=== PATIENT | male | born 1985 | race Caucasian/White ===

== ENCOUNTER 2018-05-29 23:25 | Emergency (ER) | payer MEDICAID ==
[~2018-05-29] VITALS: Ht 180.3 cm; Wt 79.4 kg
[2018-05-29 23:30] VITALS: BP_SYST 118
[2018-05-30 03:09] VITALS: BP_SYST 120
== END 2018-05-30 03:09 | disposition home or self-care (01) ==
LOC: SED 23:25
DX: S20.212A Contusion of left front wall of thorax, initial encounter (principal); W05.1XXA Fall from non-moving nonmotorized scooter, initial encounter; Y93.89 Activity, other specified; Y92.89 Other specified places as the place of occurrence of the external cause; Y99.8 Other external cause status
CPT/HCPCS: 71100; 99283